=== PATIENT | female | born 1990 | race Caucasian/White ===

== ENCOUNTER 2020-02-10 18:15 | Outpatient (REF) | payer OTHER, SELFPAY ==
[2020-02-10 18:46] LABS: COVID-19 Test Negative (Negative)
== END 2020-02-10 18:16 | disposition home or self-care (01) ==
LOC: HO.LAB 18:15
PROVIDERS: Visit Provider Internal Medicine
DX: Z20.828 Contact with and (suspected) exposure to other viral communicable diseases (principal)
CPT/HCPCS: 87635; C9803

== ENCOUNTER 2023-07-11 07:16 | Emergency (ER) | payer OTHER, SELFPAY ==
--- NOTE | ~2023-07-11 | XR_ITS ---
EXAMINATION: XR SHOULDER, RIGHT CLINICAL INFORMATION: Chronic pain and right shoulder without trauma COMPARISON: None available. TECHNIQUE: AP external rotation, Grashey, scapular Y, and axillary views of the right shoulder. FINDINGS: The bones and soft tissues are normal. No fracture. Glenohumeral and acromioclavicular alignment is anatomic with normal joint space. No abnormal soft tissue calcifications. XR/XR shoulder RT min 2V IMPRESSION: Normal right shoulder.
[2023-07-11 07:24] VITALS: BP 138/75; PULSE 66; RESP 19; TEMP 36.5; O2SAT 98; BMI 38.7
--- NOTE | 2023-07-11 07:50 | ED_ITS ---
HPI - Extremity Problem General Chief complaint: Extremity Injury, Upper Stated complaint: R shoulder pain Time Seen by Provider: 07/11/23 07:39 Source: patient Mode of arrival: ambulatory Limitations: no limitations History of Present Illness HPI Narrative: 33 yo female no IVDA, not on thinners here with a few days of R mid thoracic back pain no trauma reported has tried OTC medications and massage has referred pain down back of arm no known injury cannot get comfortable. MD Complaint: other (back pain) Onset (ago): day(s) (few) Pain Consistency: constant Location: right and other (thoracic pain) Quality: other (throbbing) Radiation: distal (upper posterior arm) Relieving factors: rest Exacerbating factors: range of motion, palpation and other (movement) Associated symptoms: denies other symptoms Related Data Previous Rx's ?Medication ?Instructions ?Recorded diazepam 5 mg tablet (Valium) 5 mg PO TID PRN muscle spasm #15 07/11/23 tabs Allergies Allergy/AdvReac Type Severity Reaction Status Date / Time No Known Allergies Allergy Unknown Verified 07/11/23 07:25 [No Known Allergies*] Review of Systems Review of Systems: Constitutional : No Weight loss, No Fever, No Chills, ENT/Mouth : No Hearing loss, No Ear Pain, No Nasal Congestion, No Sinus Pain, No Hoarseness, No sore throat, No Rhinorrhea, No Swallowing Difficulty Cardiovascular : No Chest Pain, No SOB Respiratory : No Cough, No Dyspnea Gastrointestinal : No Nausea, No Vomiting, No Diarrhea, No abdominal Pain, No Hematochezia, No Melena Genitourinary : No Dysuria, No Urinary Frequency, No Hematuria, No Urinary Incontinence, Musculoskeletal : positive back pain Skin : No Skin Lesions, No rash Neuro : No Weakness, No Numbness, No Paresthesias, no loss of bowel or bladder incontinence, no saddle anesthesia All other systems reviewed and are negative FORMERLY [facility], 1928–1983 Past Medical History Attestation statement: The following information was validated with the patient. Medical History No pertinent past medical history Social History Social History (Updated 07/11/23 @ 08:35 by Maira Watson DO) Patient Tobacco Use Status: Never used Tobacco Physical Exam Vital Signs: Vital Signs: Last Vital Signs Temp 97.7 F 07/11/23 07:24 Pulse 66 07/11/23 07:24 Resp 19 07/11/23 07:24 BP 138/75 07/11/23 07:24 Pulse Ox 98 07/11/23 07:24 O2 Del Method Room Air 07/11/23 07:24 BMI result Body Mass Index 38.7 Appearance: Alert. Oriented X3. No acute distress. Eyes: Pupils equal, round and reactive to light. ENT: Pharynx normal. Neck: Normal inspection. Neck supple. CVS: Normal heart rate and rhythm. Pulses normal. Respiratory: No respiratory distress. Breath sounds normal. Abdomen: Soft and nontender. Back: ttp along R mid thoracic lateral spine reproduces the pain - RUE NV Intact Skin: Skin warm and dry. Normal skin color. Normal skin turgor. Extremities: No lower extremity edema. No calf ttp Neuro: Oriented X 3. No motor deficit. No sensory deficit. Medical Decision Making Medical Decision Making [facility] Narrative: 33 yo female remote shoulder injury 20 years ago here with c/o R thoracic pain with spasm and some radicular symptoms down R arm she is NV intact I can reproduce the pain she has no red flag symptoms at this time will start on NSAIDs and muscle relaxer plan to follow up with PCP for possible further workup after trip she is taking or MRI discussed reasons to return Differential Diagnosis Differential Diagnoses: The differential diagnosis associated with the presentation includes strain, disc herniation, spasm Independent Interpretation I performed an independent interpretation of an: Plain X-Ray (no fracture) Radiology Impression Discussion of test interpretation with radiology: I have reviewed the radiologist's reading. Prescription Management I considered prescription management with: Pain Medication and Other Discharge Plan Discharge Clinical Impression: Spasm of thoracic back muscle Patient Disposition: Home, Self-Care Instructions: Muscle Spasm (ED), Back Pain (ED) Additional Instructions: given your symptoms this seems more like spasm and you have radicular symptoms which is concerning for possible disc pathology irritating spinal nerve in thoracic area and lower cervical when you get back from your trip please talk to your doctor about possible MRI if not better rotate tylenol and motrin with the valium Prescriptions: New diazepam [Valium] 5 mg tablet 5 mg PO TID PRN (Reason: muscle spasm) Qty: 15 0RF Rx Instructions: partial fill is okay Print Language: Vietnamese
[2023-07-11] MEDS: diazePAM 5 MG TABLET PO (08:35)
[2023-07-11 09:02] VITALS: BP 135/77; PULSE 62; RESP 18; TEMP 36.7; O2SAT 96
== END 2023-07-11 09:05 | disposition home or self-care (01) ==
PROVIDERS: Emergency Provider Emergency Medicine
DX: M62.830 Muscle spasm of back (principal); M25.511 Pain in right shoulder
CPT/HCPCS: 73030; 99282; 99283

== ENCOUNTER 2023-07-23 08:14 | Outpatient (REF) | payer OTHER, SELFPAY ==
[2023-07-23 08:39] LABS: MANUAL DIFF FLAG NO
[2023-07-23 09:22] LABS: Basophils Percent Auto 0.5 % (0-2); Eosinophils Absolute Auto 0.1 X10*3/uL (0.0-0.4); Eosinophils Percent Auto 1.7 % (0-4); Hematocrit 44.7 % (37.0-47.0); Hemoglobin 14.5 g/dl (12.0-16.0); Imm Gran Abs Auto 0.05 X10*3/uL (0.00-0.03); Imm Gran Pct Auto 0.6 % (0.0-0.4); Lymphocytes Absolute Auto 2.5 X10*3/uL (1.2-4.9); Mean Corpuscular HGB Conc 32.4 g/dl (31.0-35.0); Mean Corpuscular Hemoglobin 28.2 pg (27.0-33.0); Mean Corpuscular Volume 86.8 fL (80.0-98.0); Mean Platelet Volume 10.7 fL (9.4-12.3); Monocytes Absolute Auto 0.5 X10*3/uL (0.1-1.2); Monocytes Percent Auto 5.8 % (2-11); Neutrophils Percent Auto 61.4 % (45-73); Platelet Count 207 X10*3/uL (160-400); Red Blood Count 5.15 X10*6/uL (4.20-5.50); Red Cell Distribution Width 12.9 % (11.0-16.0); White Blood Count 8.2 X10*3/uL (4.8-10.8)
[2023-07-23 09:32] LABS: Estimated Average Glucose 103 mg/dL; Hemoglobin A1c % 5.2 % (<6.0)
[2023-07-23 10:27] LABS: Alanine Aminotransferase 102 U/L (0-31); Albumin Level 4.1 g/dL (3.5-5.0); Alkaline Phosphatase 112 U/L (39-117); Anion Gap 9 (12-20); Aspartate Amino Transferase 45 U/L (5-31); Bilirubin Total 0.3 mg/dL (0.0-1.0); Blood Urea Nitrogen 18 mg/dL (9-16); Calcium 9.6 mg/dL (8.4-10.2); Carbon Dioxide 29 mmol/L (22-29); Chloride 105 mmol/L (96-108); Cholesterol 201 mg/dL (<200); Estimated Glomerular Filt Rate > 60; Glucose Random 75 mg/dL (60-115); HDL Cholesterol 45 mg/dL (>40); LDL Cholesterol Calculated 133 mg/dL (<100); Magnesium 2.2 mg/dL (1.6-2.6); Potassium 4.4 mmol/L (3.3-5.1); Sodium 139 mmol/L (135-145); Total Protein 7.4 g/dL (6.5-8.0); Triglycerides 117 mg/dL (<150)
[2023-07-23 10:31] LABS: TSH reflex Free T4 0.86 uIU/mL (0.32-4.0)
[2023-07-27 05:18] LABS: VITAMIN D (1,25 OH) D3 35 pg/mL; Vit D (1,25-Dihydroxy) Total 35 pg/mL (18-72); Vitamin D (1,25 OH) D2 <8 pg/mL
== END 2023-07-23 08:15 | disposition home or self-care (01) ==
LOC: HO.LAB 08:14
PROVIDERS: PCP Internal Medicine; Visit Provider Internal Medicine
DX: E66.09 Other obesity due to excess calories (principal)
CPT/HCPCS: 36415; 80053; 80061; 82652; 83036; 83735; 84443; 85025

== ENCOUNTER 2023-09-02 07:00 | Outpatient (RCR) | payer OTHER, SELFPAY | END 2023-11-21 15:42 | disposition home or self-care (01) | LOC: HO.PT 07:00 | PROVIDERS: PCP Nurse Practitioner Family; Visit Provider Nurse Practitioner Family | DX: M54.2 Cervicalgia (principal) | CPT/HCPCS: 97012; 97014; 97110; 97140; 97161 ==

== ENCOUNTER 2024-07-04 07:13 | Emergency (ER) | payer OTHER, SELFPAY ==
--- NOTE | ~2024-07-04 | MR_ITS ---
CLINICAL HISTORY: neck pain right-sided radiculopathy Breathing artifact throughout images. Rpt lisa ging attempted. MR CERVICAL SPINE WITHOUT GADOLINIUM Comparison: None Findings: The vertebral bodies are in satisfactory alignment. No acute fracture or osseous marrow replacement process. Craniocervical junction is unremarkable. Cervical cord is normal in size and signal. Prevertebral soft tissues are intact. C1-2: Unremarkable. C2-3: Unremarkable. C3-4: Moderate disc osteophyte complex with mass effect on the thecal sac. No significant mass effect on the spinal cord. No significant spinal or foraminal stenosis. C4-5: Mild disc osteophyte complex with no significant mass effect on the thecal sac or spinal cord. No significant spinal or foraminal stenosis. C5-6: Large disc osteophyte complex with mass effect on the thecal sac. There is [id number] mass effect on the ventral aspect of the spinal cord with relative stenosis. No significant foraminal stenosis. C6-7: Large disc osteophyte complex with mass effect on the thecal sac. There is moderate mass effect on the ventral aspect of the spinal cord with relative stenosis. There is uncovertebral osteophyte foraminal narrowing, right greater than left. C7-T1: Minimal disc osteophyte complex with mass effect on the thecal sac. No significant mass effect on the spinal cord. No significant spinal or foraminal stenosis. Impression: 1. Multilevel disc osteophyte complexes. Findings are most prominent at C5-6 and C6-7 where there is at least mild degree of spinal stenosis. 2. No significant foraminal stenosis. Mild bilateral disease at C6-7. This document has been electronically signed by: Aranza Hong DO on 07/04/2024 11:52:01
--- NOTE | ~2024-07-04 | XR_ITS ---
CLINICAL HISTORY: rt shoulder pain 3 view right shoulder Comparison: 07/11/2023 Findings: Bones intact. No dislocations. No significant loss of joint space or osteophytes. No erosions. No radiopaque foreign body. IMPRESSION: 1. No acute findings This document has been electronically signed by: Myron Gerber MD on 07/04/2024 08:14:00
[2024-07-04 07:14] VITALS: BP 129/70; PULSE 71; RESP 18; TEMP 36.1; O2SAT 96; BMI 38.7
--- OUTSIDE RECORDS SUMMARY | 2024-07-04 07:43 | XMS_ITS | Encounter Summary ---
Author Organization [facility] Address [address] [place] [id number] Phone Care Team Providers Care Change Of Address Clerk Name Role Phone Unavailable Primary Care Provider Unavailabl e Encounter Details Date Type Department Care Team (Late st Contact Info) Description 11/15/2016 Conversion Encounter [facility] - [address] [phone] Social History Tobacco Use Types Packs/Day Years Used Date Smoking Tobacco: Never Assessed Comments Unknown Sex and Gender Information Value Date Recorded Sex Assigned at Not on file Legal Sex Female 4:15 PM EDT Gender Identity Not on file Sexual Orientation Not on file documented as of this encounter Plan of Treatment Not on file documented as of this encounter Visit Diagnoses Not on filedocumented in this encounter
--- OUTSIDE RECORDS SUMMARY | 2024-07-04 07:43 | XMS_ITS | Clinical Summary ---
Author Organization [facility] Address [address] [place] [phone] Phone Care Team Providers Care Backer Up Name Role Phone Unavailable Primary Care Provider Unavailabl e Immunizations Immunization Administration Dates Next Due DTP 08/29/1998, 9,07/29/1992,1989,1988 Hep B, ped/adol 07/08/2000,12/12/1999,10/20/1999 Hib (PRP-T) 08/29/1989 IPV 08/29/1998, 9,07/29/1992,1989 MMR 08/11/1999,05/29/1989 OPV 1988 Td (adult) (MBL), 2 Lf tetan us toxoid, PF, adsorbed 08/11/1999 Family History Relation Name Status Comments Brother Alive Brother: Alive and well Father Alive Father: Alive a nd well Mother Alive Mother: Alive a nd well Sister 1 Alive Sister: Alive a nd well, Alive and well Sister 2 Alive Sister: Alive a nd well, Alive and well Social History Tobacco Use Types Packs/Day Years Used Date Smoking Tobacco: Never Assessed Comments Unknown Sex and Gender Information Value Date Recorded Sex Assigned at Not on file Legal Sex Female 4:15 PM EDT Gender Identity Not on file Sexual Orientation Not on file Plan of Treatment Health Maintenance Due Date Last Done Comments Varicella Vaccines (1 of 2 - 13+ 2-dose series) 01/28/2001 DTaP,Tdap,and Td Vaccines (7 - Tdap) 08/10/2009 08/11/1999, 08/29/1998, 05/29/1998, Additional history exists Influenza Vaccines (#1) 2023 COVID-19 Vaccine ( season) 2023 HIB Vaccines Completed 08/29/1989 IPV Vaccines Completed 08/29/1998, 05/03, 07/29/1992, Additional history exists MMR Vaccines Completed 08/11/1999, 05/29/1989 Hepatitis B Vaccines Completed 07/08/2000, 12/12/1999, 10/20/1999 HPV Vaccines Aged Out No longer eligi ble based on patient's age to complete this topic Hepatitis A Vaccines Aged Out No long er eligible based on patient's age to complete this topic Men B Vaccine Aged Out No longer elig ible based on patient's age to complete this topic Meningococcal Vaccine Aged Out No alana demario eligible based on patient's age to complete this topic Pneumococcal Vaccine Aged Out No long er eligible based on patient's age to complete this topic
--- NOTE | 2024-07-04 08:09 | ED.EXTPRO ---
HPI - Extremity Problem General Chief complaint: Extremity Injury, Upper Stated complaint: shoulder pain Time Seen by Provider: 07/04/24 07:26 History of Present Illness HPI Narrative: patient is a 34-year-old female presents today with having right shoulder pain that is been ongoing. The pain is sharp it goes down to the shoulders. Is worse with specific movements. There is no tingling or numbness to the fingers. There is no bowel urinary incontinence. There was no trauma. Patient is from home. Has been having the same symptoms ongoing for weeks. No chest pain or shortness of breath no diaphoresis. The pain radiates from the neck to the trapezius area to the right shoulder. She works as a nurse in the emergency department. Related Data Previous Rx's ?Medication ?Instructions ?Recorded diazepam 5 mg tablet (Valium) 5 mg PO TID PRN muscle spasm #15 07/11/23 tabs cyclobenzaprine 10 mg tablet 10 mg PO TID PRN pain #14 tabs 07/04/24 ibuprofen 400 mg tablet 400 mg PO Q6H PRN pain #20 tabs 07/04/24 prednisone 20 mg tablet 40 mg (2 x 20 mg) PO DAILY #10 tabs 07/04/24 Allergies Allergy/AdvReac Type Severity Reaction Status Date / Time No Known Allergies Allergy Unknown Verified 07/04/24 07:16 [No Known Allergies*] Review of Systems Review of Systems: No fever no chills no chest pain or shortness of breath PMFSH Past Medical History Attestation statement: The following information was validated with the patient. Medical History No pertinent past medical history Social History Social History Patient Tobacco Use Status: Never used Tobacco Advance Directives: No Advance Directives Information Provided: Yes Do you have a plan to hurt others: No Plan Physical Exam Vital Signs: Vital Signs: Last Vital Signs Temp 98.6 F 07/04/24 11:35 Pulse 88 07/04/24 11:35 Resp 14 07/04/24 11:35 BP 127/68 07/04/24 11:35 Pulse Ox 97 07/04/24 11:35 O2 Del Method Room Air 07/04/24 11:35 BMI result Body Mass Index 38.7 Appearance: Alert. Oriented X3. No acute distress. Eyes: Pupils equal, round and reactive to light. ENT: Pharynx normal. Neck: Normal inspection. Neck supple. No lymph nodes noted. No crepitus CVS: Normal heart rate and rhythm. Pulses normal. Normal S1 and S2 Respiratory: No respiratory distress. Breath sounds normal. No Wheezing. No rales Abdomen: Soft and nontender. No rigidity. No distention. good BS x4 Skin: Skin warm and dry. Normal skin color. Normal skin turgor. Extremities: No lower extremity edema. Neurovascular intact to all extremities. No Lacerations. No Rash Neuro: Oriented X 3. No motor deficit. No sensory deficit. Moving all extermities. No slurred speech Medications Administered Discontinued Medications Generic Name Dose Route Start Last Admin Trade Name Freq PRN Reason Stop Dose Admin Ketorolac Tromethamine 30 mg 07/04/24 08:08 07/04/24 08:46 Ketorolac Tromethamine 30 Mg/Ml Vial IM 07/04/24 08:09 30 mg ONCE ONE Administration Lorazepam 0.5 mg 07/04/24 08:09 07/04/24 08:46 Lorazepam 0.5 Mg Tablet PO 07/04/24 08:10 0.5 mg ONCE ONE Administration Medical Decision Making Medical Decision Making [facility] Narrative: Patient has significant pain going to the shoulder to the neck. We did imaging of the shoulder which was grossly negative by my interpretation. An MRI of the cervical spine was done. The finding was discussed with Neurosurgery. There is significant mild to moderate stenosis at C5-C6 C6-C7. There is no radiculopathy noted. Will give small amount of steroid will have patient follow-up on an outpatient basis. Differential Diagnosis Differential Diagnoses: The differential diagnosis associated with the presentation includes Admission/Observation Consideration of admission/observation: Escalation of care including admission/observation considered Consult Healthcare Provider Management of the patient was discussed with: Drywall Finisher ( neurosurgery) Lab Data [facility] Lab Attestation statement: I reviewed the patient's lab results. Independent Interpretation I performed an independent interpretation of an: Plain X-Ray ( shoulder) Radiology Impression Discussion of test interpretation with radiology: I have reviewed the radiologist's reading. Discharge Plan Discharge Clinical Impression: Neck and shoulder pain Patient Disposition: Home, Self-Care Instructions: Acute Neck Pain (ED) Prescriptions: New cyclobenzaprine 10 mg tablet 10 mg PO TID PRN (Reason: pain) Qty: 14 0RF prednisone 20 mg tablet 40 mg PO DAILY Qty: 10 0RF ibuprofen 400 mg tablet 400 mg PO Q6H PRN (Reason: pain) Qty: 20 0RF No Action diazepam [Valium] 5 mg tablet 5 mg PO TID PRN (Reason: muscle spasm) Qty: 15 0RF Rx Instructions: partial fill is okay Referrals: Domenico Johnson MD [Physician] - 07/08/24 Print Language: [place] Islander
--- NOTE | 2024-07-04 08:41 | PC.NURSE ---
MRI screen form completed and sent to information technology technician via [employer] picture per request over fax.
[2024-07-04] MEDS: Ketorolac Tromethamine 30 MG/ML VIAL IM (08:46)
[2024-07-04] MEDS: LORazepam 0.5 MG TABLET PO (08:46)
[2024-07-04 11:35] VITALS: BP 127/68; PULSE 88; RESP 14; TEMP 37; O2SAT 97
[2024-07-04 14:21] VITALS: BP 127/68; PULSE 88; RESP 14; TEMP 37; O2SAT 97
== END 2024-07-04 14:21 | disposition home or self-care (01) ==
PROVIDERS: Emergency Provider Emergency Medicine Emergency Medical Services
DX: M25.511 Pain in right shoulder (principal); M54.2 Cervicalgia; Z79.899 Other long term (current) drug therapy
CPT/HCPCS: 72141; 73030; 96372; 99283; 99285; J1885

== ENCOUNTER → 2024-07-04 07:28 | Outpatient (BNV) | payer OTHER, SELFPAY | PROVIDERS: Emergency Provider Emergency Medicine Emergency Medical Services; Visit Provider Specialist | DX: M25.78 Osteophyte, vertebrae (principal); M25.511 Pain in right shoulder | CPT/HCPCS: 72141; 73030 ==

== ENCOUNTER 2024-08-20 08:02 | Outpatient (RCR) | payer OTHER, SELFPAY | END 2024-12-09 10:38 | disposition home or self-care (01) | LOC: HO.PT 08:02 | PROVIDERS: PCP Internal Medicine; Visit Provider Internal Medicine | DX: M25.511 Pain in right shoulder (principal) | CPT/HCPCS: 97012; 97110; 97140; 97162 ==

== ENCOUNTER 2024-12-11 21:01 | Emergency (ER) | payer OTHER, SELFPAY ==
--- NOTE | ~2024-12-11 | XR_ITS ---
CLINICAL HISTORY: Fall; Tenderness Pain Sacrum/coccyx, 3 views COMPARISON: None provided FINDINGS: No visible acute fracture. An IUD projects over the left pelvis. IMPRESSION: No acute findings. This document has been electronically signed by: Mani Rico MD on 12/11/2024 22:44:21
[2024-12-11 21:06] VITALS: BP 143/99; PULSE 69; RESP 20; TEMP 36.6; O2SAT 98; BMI 39.5
--- OUTSIDE RECORDS SUMMARY | 2024-12-11 21:16 | XMS_ITS | Clinical Summary ---
Author Organization [facility] Address [address] [place] [phone] Phone Care Team Providers Care Metal Burnisher Name Role Phone Unavailable Primary Care Provider [...] 08/10/2009 08/11/1999, 08/29/1998, 05/29/1998, Additional history exists HPV Vaccines (1 - 3-dose SCDM series) 01/28/2015 Influenza Vaccines (#1) 2024 COVID-19 Vaccine (1 - 2024-25 season) 2024 HIB Vaccines Completed 08/29/1989 IPV Vaccines Completed 08/29/1998, 05/03, 07/29/1992, Additional history exists MMR Vaccines Completed 08/11/1999, 05/29/1989 Hepatitis B Vaccines Completed 07/08/2000, 12/12/1999, 10/20/1999 Hepatitis A Vaccines Aged Out No long [...]
--- OUTSIDE RECORDS SUMMARY | 2024-12-11 21:16 | XMS_ITS | Encounter Summary ---
Author Organization [facility] Address [address] [place] [phone] Phone Care Team Providers Care Vp Digital Marketing Name Role Phone Unavailable Primary Care Provider Unavailabl e Encounter Details Date Type Department Care Team (Late st Contact Info) Description 11/15/2016 Conversion Encounter [facility] - [address] [phone] Social History Tobacco Use Types Packs/Day Years [...]
[2024-12-11 21:46] VITALS: BP 143/99; PULSE 69; RESP 20; TEMP 36.6; O2SAT 98
--- NOTE | 2024-12-11 21:48 | PC.NURSE ---
pt fell down carpet stairs with socks and slid down on her tailbone. incident on Saturday, continued pain throughout. pain has not let up.
--- NOTE | 2024-12-11 22:00 | ED.FALL ---
HPI - Fall General Chief Complaint: Fall Stated Complaint: fall Time Seen by Provider: 12/11/24 21:35 Source: patient Mode of arrival: ambulatory Limitations: no limitations History of Present Illness ED Provider: Will ABAD HPI Narrative: The patient is a 34-year-old female presenting to the ED for evaluation of ongoing coccygeal pain worse with sitting on firm objects, and when rising from a seated position since suffering a mechanical fall down a flight of stairs 5 days ago. The patient reports she slipped in socks and fell onto her buttocks down a number of stairs, denies head strike, LOC, anticoagulation, or tumbling down stairs. The patient denies other injury or complaints since the fall, denies recurrent trauma. Patient reports pain began immediately following the fall and has been ongoing since that time despite intermittent use of Tylenol and ibuprofen. The patient reports pain is exacerbated by sitting on from objects, and when rising from a low seated position such as in her vehicle. The patient denies pain while sitting on the toilet, denies associated dysuria, hematuria, urinary retention, constipation, hematochezia, melena, bowel/bladder incontinence, saddle paresthesias, or surgical spinal history. Patient denies radiation of pain into the legs. Related Data Previous Rx's ?Medication ?Instructions ?Recorded diazepam 5 mg tablet (Valium) 5 mg PO TID PRN muscle spasm #15 07/11/23 tabs cyclobenzaprine 10 mg tablet 10 mg PO TID PRN pain #14 tabs 07/04/24 ibuprofen 400 mg tablet 400 mg PO Q6H PRN pain #20 tabs 07/04/24 prednisone 20 mg tablet 40 mg (2 x 20 mg) PO DAILY #10 tabs 07/04/24 acetaminophen 500 mg capsule 1,000 mg (2 x 500 mg) PO .q8 PRN 12/11/24 fever or pain #30 caps cyclobenzaprine 10 mg tablet 10 mg PO TID PRN muscle spasm #14 12/11/24 tabs ibuprofen 600 mg tablet 600 mg PO Q8H PRN fever or pain 12/11/24 #30 tabs Allergies Allergy/AdvReac Type Severity Reaction Status Date / Time No Known Allergies (No Known Allergy Unknown Verified 12/11/24 21:08 Allergies*) Review of Systems Review of Systems: Yes all other systems are reviewed and are negative PMFSH Past Medical History Medical History No pertinent past medical history Social History Social History Patient Tobacco Use Status: Never used Tobacco Smoked in Last 30 Days: No Advance Directives: No Advance Directives Information Provided: No Do you have a plan to hurt others: No Plan Patient : No Physical Exam Vital Signs: Vital Signs: Last Vital Signs Temp 98 F 12/11/24 21:46 Pulse 69 12/11/24 21:46 Resp 20 12/11/24 21:46 BP 143/99 H 12/11/24 21:46 Pulse Ox 98 12/11/24 21:46 O2 Del Method Room Air 12/11/24 21:46 BMI result Body Mass Index 39.5 CONSTITUTIONAL: The patient appears uncomfortable, but otherwise non-toxic, well nourished and in no acute distress. Vital signs as documented. HEAD: Atraumatic, normocephalic. EYES: EOMs grossly intact, pupils equal, conjunctiva clear, no exudate. ENT: Nares patent, no discharge. Airway patent, no audible stridor, visible mucosa is pink and moist without noted lesions. NECK: trachea is midline, no obvious masses or gross abnormalities. CHEST: Symmetric movement, normal appearance. LUNGS: Non-labored work of breathing. CARDIAC: No evidence of hypoperfusion. ABDOMEN: Nondistended, no obvious injury. BACK: Moderate tenderness of the coccygeal area, no overlying bruising noted, no other midline spinous process tenderness. : Deferred. EXTREMITIES: Moves all extremities spontaneously without reported pain. No obvious injury or deformity noted. NEURO: Alert and oriented x3, CN II-XII appear grossly intact. Cerebellar Functioning grossly intact. Speech clear and appropriate. SKIN: Warm, dry, color appropriate. No rashes or lesions noted. Medications Administered Discontinued Medications Generic Name Dose Route Start Last Admin Trade Name Freq PRN Reason Stop Dose Admin Acetaminophen 975 mg 12/11/24 21:58 12/11/24 22:20 Acetaminophen 325 Mg Tablet PO 12/11/24 21:59 975 mg ONCE ONE Administration Ibuprofen 600 mg 12/11/24 21:58 12/11/24 22:20 Ibuprofen 600 Mg Tablet PO 12/11/24 21:59 600 mg ONCE ONE Administration Lidocaine 1 patch 12/11/24 21:58 12/11/24 22:19 Lidocaine 4 % Patch Adh..Patch TRANSDERMA 12/11/24 21:59 1 patch ONCE ONE Administration Protocol Medical Decision Making Medical Decision Making [facility] Narrative: 10:55 PM 12/11/2024 (Prisca ABAD): The patient is a 34-year-old female presenting to the ED for evaluation of ongoing coccygeal pain worse with sitting on firm objects, and when rising from a seated position since suffering a mechanical fall down a flight of stairs 5 days ago. The patient reports she slipped in socks and fell onto her buttocks down a number of stairs, denies head strike, LOC, anticoagulation, or tumbling down stairs. The patient denies other injury or complaints since the fall, denies recurrent trauma. Patient reports pain began immediately following the fall and has been ongoing since that time despite intermittent use of Tylenol and ibuprofen. The patient reports pain is exacerbated by sitting on from objects, and when rising from a low seated position such as in her vehicle. The patient denies pain while sitting on the toilet, denies associated dysuria, hematuria, urinary retention, constipation, hematochezia, melena, bowel/bladder incontinence, saddle paresthesias, or surgical spinal history. Patient denies radiation of pain into the legs. The patient's exam shows tenderness of the coccygeal region, no other acute findings. The patient's x-ray shows no obvious fracture, however on this provider's interpretation I question a small nondisplaced fracture line of the middle of the 3rd coccyx bone. Patient is likely suffering from coccygeal contusion versus fracture, no concern for cauda equina or other surgical emergency. As the presence of fracture does not change care plan, we will forego CT imaging at this time. Patient will be treated with lidocaine patch, ibuprofen, Tylenol, and muscle relaxer. Differential Diagnosis Differential Diagnoses: The differential diagnosis associated with the presentation includes Coccygeal contusion, coccyx fracture, cauda equina Admission/Observation Consideration of admission/observation: Escalation of care including admission/observation considered Radiology Impression Discussion of test interpretation with radiology: I have reviewed the radiologist's reading. Radiologist Impression: CLINICAL HISTORY: Fall; Tenderness Pain Sacrum/coccyx, 3 views COMPARISON: None provided FINDINGS: No visible acute fracture. An IUD projects over the left pelvis. IMPRESSION: No acute findings. This document has been electronically signed by: Mani Rico MD on 12/11/2024 22:44:21 Tests considered The following testing was considered but not selected: CT Pelvis Prescription Management I considered prescription management with: Pain Medication and Other (Antispasmodics) Discharge Plan Discharge Clinical Impression: Coccygeal contusion Qualifiers: Encounter type: initial encounter Qualified Code(s): S30.0XXA - Contusion of lower back and pelvis, initial encounter Patient Disposition: Home, Self-Care Instructions: Coccyx Injury (ED) Additional Instructions: Thank you for choosing [facility]'s Emergency Department for your care today. At this time there is no indication for admission to the hospital or continued ED observation, and it is safe to discharge you home. Thankfully your x-ray shows no obvious displaced fracture of your tailbone. Your symptoms may be due to a contusion of your tailbone versus a subtle nondisplaced fracture not evident on x-ray. The presence or absence of a fracture does not change your care plan. Please use a supportive device such as inflatable donut to reduce pressure on your tailbone whenever sitting. You may take alternating (staggered) doses of ibuprofen 600mg and Tylenol 1000mg every 4 hours as needed for any additional pain. Please rest the injured area, and apply ice for 20 minutes every hour. As a part of your care plan, you have also been prescribed a muscle relaxer. Please take this medication only for severe pain or spasm that is not relieved by ibuprofen and/or Tylenol. Muscle relaxer medications can carry high risk of unintentional addiction and abuse. Take this medication only as directed and only if absolutely necessary. This medicine can make you drowsy, you are not allowed to drive, operate heavy machinery, or be the sole care provider for children while taking this medication. We have treated you with a lidocaine patch, if you find this provides you significant relief additional patches can be purchased at any local pharmacy without a prescription. Please follow up with your primary care physician for re-evaluation, additional management of your symptoms, and continued preventative care. If you do not have a primary care physician, please call the [facility] at [phone] to establish a new primary care physician. While waiting to establish your new primary care physician, you can call our Walk[facility]in [facility] at [phone] for non-emergency needs. Please return to the emergency department if you develop a severe or sudden change in your symptoms, a fever over 100.4 that does not improve with Tylenol or Ibuprofen, recurrent vomiting, or any other new or worsening symptoms or concerns. Prescriptions: New cyclobenzaprine 10 mg tablet 10 mg PO TID PRN (Reason: muscle spasm) Qty: 14 0RF ibuprofen 600 mg tablet 600 mg PO Q8H PRN (Reason: fever or pain) Qty: 30 0RF acetaminophen 500 mg capsule 1,000 mg PO .q8 PRN (Reason: fever or pain) Qty: 30 0RF No Action diazepam [Valium] 5 mg tablet 5 mg PO TID PRN (Reason: muscle spasm) Qty: 15 0RF Rx Instructions: partial fill is okay cyclobenzaprine 10 mg tablet 10 mg PO TID PRN (Reason: pain) Qty: 14 0RF prednisone 20 mg tablet 40 mg PO DAILY Qty: 10 0RF ibuprofen 400 mg tablet 400 mg PO Q6H PRN (Reason: pain) Qty: 20 0RF Print Language: Irish
[2024-12-11] MEDS: Lidocaine 4 % Patch ADH..PATCH 1 PATCH TRANSDERMA (22:19)
[2024-12-11 23:09] VITALS: BP 113/68; PULSE 67; RESP 16; TEMP 36.7; O2SAT 98
[2024-12-11 23:23] VITALS: BP 113/68; PULSE 67; RESP 16; TEMP 36.7; O2SAT 98
== END 2024-12-11 23:27 | disposition home or self-care (01) ==
PROVIDERS: Emergency Provider Student in an Organized Health Care Education/Training Program
DX: S30.0XXA Contusion of lower back and pelvis, initial encounter (principal); W10.9XXA Fall (on) (from) unspecified stairs and steps, initial encounter; Y93.89 Activity, other specified; Y92.89 Other specified places as the place of occurrence of the external cause; Y99.8 Other external cause status
CPT/HCPCS: 72220; 99283; 99284

== ENCOUNTER → 2024-12-11 21:58 | Outpatient (BNV) | payer OTHER, SELFPAY | PROVIDERS: Emergency Provider Student in an Organized Health Care Education/Training Program; Visit Provider Radiology Diagnostic Radiology | DX: M54.18 Radiculopathy, sacral and sacrococcygeal region (principal) | CPT/HCPCS: 72220 ==